=== PATIENT | male | born 1970 | race Asian ===

== ENCOUNTER 2019-07-17 16:40 | Emergency (ER) | payer OTHER ==
[~2019-07-17] VITALS: Ht 170.2 cm; Wt 68.0 kg
[2019-07-17 16:54] VITALS: BP 126/84
--- NOTE | 2019-07-17 17:09 | NUR ---
ED Nurse Note: Patient walked in to ER c/o left knee pain 5/. Stated slipped in the bathroom yestrday, and twisted left knee. Patient presented calm, swollen left knee, AAO x4, VSS at this time.
[2019-07-17] MEDS ORDERED: Acetaminophen 500mg (ES) tab ORAL ONE (17:15)
[2019-07-17] MEDS ORDERED: HYDROcodone/Acetamin 5/325 tab ORAL ONE (17:15)
--- NOTE | 2019-07-17 17:56 | Emergency Room Report ---
History of Present Illness General Chief Complaint: Lower Extremity Injury Source: Patient Present Illness HPI 49-year-old male presents to the emergency department complaining of 8 out of 10 severity localized pain to the anterior left knee x2 days. Patient reports mechanical slip and fall where he believes he fell in a twisting motion. Patient denies hitting his head or having a loss of consciousness. He denies midline neck or back pain. Patient reports he is able to walk and bear weight however he states his knee feels unstable and he has an exacerbation of pain with attempts at performing these maneuvers. Patient reports previous patellar fracture approximately 50 days ago which had some difficulty in healing. He reports some swelling he denies erythema he reports some light bruising. Patient denies taking any medications for symptoms at this time. Denies numbness tingling or loss of sensation or gross motor movements of the extremities, incontinence of bowel or bladder. Denies CP, Palpitations, LOC, AMS , dizziness, Changes in Vision, weakness or a sudden severe headache. No other aggravating or relieving factors. Allergies: Coded Allergies: No Known Allergies (Unverified , 07/17/19) Patient History Past Medical History: see triage record Past Surgical History: none Pertinent Family History: none Immunizations: UTD Reviewed Nursing Documentation: PMH: Agreed; PSxH: Agreed Nursing Documentation-PMH Past Medical History: No History, Except For Review of Systems All Other Systems: negative except mentioned in HPI Physical Exam Vital Signs Date Time Temp Pulse Resp B/P (MAP) Pulse Ox O2 Delivery O2 Flow Rate FiO2 07/17/19 16:54 98.2 79 16 126/84 (98) 99 Room Air Sp02 EP Interpretation: reviewed, normal General Appearance: no apparent distress, alert, GCS 15, non-toxic Head: normocephalic, atraumatic Eyes: bilateral eye normal inspection, bilateral eye PERRL ENT: hearing grossly normal, normal voice Neck: full range of motion Respiratory: lungs clear, normal breath sounds, speaking full sentences Cardiovascular #1: regular rate, rhythm, normal capillary refill Cardiovascular #2: 2+ dorsalis pedis (L) Musculoskeletal: normal range of motion, gait/station normal - Compensatory favoring the left lower extremity, tender - Tenderness to palpation to the anterior lateral aspect of the left knee there is mild swelling on the lateral aspect. Mild increased laxity upon varus stressing. Negative anterior and posterior drawer sign. No obvious bony deformities. Patella is in place. Patient is NVI. Neurologic: alert, motor strength/tone normal, oriented x3, sensory intact, responsive, speech normal Psychiatric: judgement/insight normal Skin: Ecchymosis/Bruising - Slight ecchymosis to the anterior left knee Medical Decision Making PA Attestation Dr. Tracy is my supervising Physician whom patient management has been discussed with. Diagnostic Impression: Primary Impression: Knee LCL sprain Qualified Codes: S83.422A - Sprain of lateral collateral ligament of left knee , initial encounter Additional Impression: Knee effusion, left ER Course 49-year-old male presents to the emergency department complaining of 8 out of 10 severity localized pain to the anterior left knee x2 days. Patient reports mechanical slip and fall where he believes he fell in a twisting motion. Patient denies hitting his head or having a loss of consciousness. He denies midline neck or back pain. Patient reports he is able to walk and bear weight however he states his knee feels unstable and he has an exacerbation of pain with attempts at performing these maneuvers. Patient reports previous patellar fracture approximately 50 days ago which had some difficulty in healing. He reports some swelling he denies erythema he reports some light bruising. Patient denies taking any medications for symptoms at this time. Denies numbness tingling or loss of sensation or gross motor movements of the extremities, incontinence of bowel or bladder. Denies CP, Palpitations, LOC, AMS , dizziness, Changes in Vision, weakness or a sudden severe headache. No other aggravating or relieving factors. Ddx considered but are not limited to Fracture, dislocation, contusion, Sprain/ Strain/Spasm, ligamental injury, meniscal injury, gout, pseudogout or septic joint. Vital signs: are WNL, pt. is afebrile H&PE are most consistent with musculoskeletal injury will perform imaging to r/ o fractures/dislocations. ORDERS: - X-ray left knee 3 views- negative for fx, Dislocation, or significant soft tissue injury, per preliminary read in ED, and signed by YAA Matute, my supervising physician has reviewed, and agrees with my interpretation. ED INTERVENTIONS: -1 g of Tylenol -600 mg ibuprofen -Knee Immobilizer splint applied to the left knee by field technical specialist. Pt. remains neurovascularly intact. --Patient is provided with crutches and instructed on their use DISCHARGE: At this time pt. is stable for d/c to home. Will provide printed patient care instructions, and any necessary prescriptions. Care plan and follow up instructions have been discussed with the patient prior to discharge. Other X-Ray Diagnostic Results Other X-Ray Diagnostic Results : X-Ray ordered: Left Knee # of Views/Limited Vs Complete: 3 View Indication: Pain EP Interpretation: Yes PA Xray: Interpretation reviewed, by supervising MD, and agrees with findings. Interpretation: no dislocation, no soft tissue swelling, no fractures, other - Mild effusion noted, evidence of previous patellar fracture with no acute bony deformity at this time Impression: Other - abnormal: effusion Electronically Signed by: Sandie Matute PA-C Last Vital Signs Date Time Temp Pulse Resp B/P (MAP) Pulse Ox O2 Delivery O2 Flow Rate FiO2 07/17/19 16:54 98.2 79 16 126/84 (98) 99 Room Air Disposition: HOME, SELF-CARE Condition: Stable Scripts No Active Prescriptions or Reported Meds Patient Instructions: Knee Sprain Additional Instructions: Take medications as directed. Follow up with an [facility] in 3-5 days, even if your symptoms have resolved. If symptoms persist MRI may be required at the discretion of your PCP or Ortho Specialist. Return sooner to ED if new symptoms occur, or current symptoms become worse. Do not drink alcohol, drive, or operate heavy machinery while taking Tylenol # 3 as this may cause drowsiness. - Please note that this Emergency Department Report was dictated using [employer] first technology software, occasionally this can lead to erroneous entry secondary to interpretation by the dictation equipment. Sandie Matute Jul 17, 2019 17:56
[2019-07-17] MEDS ORDERED: ACETAMINOPHEN-1 EAC1 ORAL (17:57)
[2019-07-17] MEDS ORDERED: IBUPROFEN600 MG ORAL (17:57)
--- NOTE | 2019-07-17 18:05 | NUR ---
ED Nurse Note: Pt cleared by health care Provider for discharge. DC instructions/prescription was given and explained to pt and verbalized understanding of teachings. All medical deviecs such as ID band removed. Pt is AAO x4, ambulatory and left with all personal belongings.
--- NOTE | 2019-07-18 14:18 | Diagnostic Imaging Report ---
INDICATION: Knee Pain COMPARISON: None 3 views of the left knee were obtained. FINDINGS: There is an acute transverse fracture of the patella with the lucency oriented horizontally. There is anterior soft tissue swelling. There is no significant joint effusion appreciated. There is no malalignment. IMPRESSION: Acute transverse fracture of the patella. The findings were conveyed to ED staff : 14:10, 07/18/2019
== END 2019-07-17 18:10 | disposition home or self-care (01) ==
LOC: EMR 18:06
DX: S83.422A Sprain of lateral collateral ligament of left knee, initial encounter (principal); M25.462 Effusion, left knee; W01.0XXA Fall on same level from slipping, tripping and stumbling without subsequent striking against object, initial encounter; Y92.9 Unspecified place or not applicable
CPT/HCPCS: 29505; 73562; Z7502; 99283